=== PATIENT | male | born 1965 | race Caucasian/White ===

== ENCOUNTER 2021-11-17 10:42 | Emergency (ER) | payer MEDICAID ==
[~2021-11-17] VITALS: Ht 175.3 cm; Wt 93.0 kg
[2021-11-17 11:35] VITALS: BP_SYST 160
--- NOTE | 2021-11-17 11:47 | NUR ---
Patient to ER bed 03 to gown for evaluation. Side rails up.
--- NOTE | 2021-11-17 11:56 | NUR ---
Kishan houser in [facility] - 11/17/21 at 1156 by [email or web address] Placed in room 03 . Placed on quality assurance monitor final, blood pressure machine and pulse oximeter. To gown for exam. Side rails up.
--- NOTE | 2021-11-17 12:00 | NUR ---
ESTABLISHED IV 20 GAUZE SALINE LOCKED AT LEFT ANTECUBITAL. URINE SPECIMEN AND BLOOD WORK DONE AND SENT TO LABS. PATIENT'S VITAL SIGNS REMAIN STABLE. RIGHT ABDOMINAL UPPER AND LOWER QUADRANT PAIN HAS RECEDED A PAIN LEVEL OF 2 OUT OF 10.
[2021-11-17] MEDS ORDERED: KETOROLAC TROMETHAMINE 15 MG VIAL IVP ONE (12:15)
--- NOTE | 2021-11-17 12:27 | NUR ---
DR MANCERA AT BEDSIDE TO EVALUATE.
[2021-11-17 12:29] LABS: BILIRUBIN,URINE NEGATIVE (NEGATIVE); CLARITY/URINE CLEAR (CLEAR); COLOR,URINE YELLOW (YELLOW); GLUCOSE,URINE NEGATIVE (NEGATIVE); KETONES,URINE NEGATIVE (NEGATIVE); LEUKOCYTE ESTERASE ,URINE 1+ (NEGATIVE); NITRITE, URINE NEGATIVE (NEGATIVE); PROTEIN URINE NEGATIVE (NEGATIVE)
[2021-11-17 12:34] LABS: BLOOD, URINE TRACE (NEGATIVE)
[2021-11-17 12:35] LABS: BASOPHILS # (AUTO) 0.1 K/uL (0.0-0.2); BASOPHILS % (AUTO) 0.4 % (0.0-2.0); EOSINOPHILS % (AUTO) 0.2 % (0.0-4.0); HEMATOCRIT 42.2 % (36-54); HEMOGLOBIN 14.4 g/dL (14.0-18.0); LYMPHOCYTES # (AUTO) 0.8 K/uL (1.0-5.5); LYMPHOCYTES % (AUTO) 4.3 % (20.5-51.5); MEAN CORPUSCULAR HEMOGLOBIN 31 pg (27-31); MEAN CORPUSCULAR HGB CONC 34 % (32-36); MEAN CORPUSCULAR VOLUME 91 fL (79.0-98.0); MONOCYTES # (AUTO) 0.8 K/uL (0.0-1.0); MONOCYTES % (AUTO) 4.9 % (1.7-9.3); NEUTROPHILS # (AUTO) 15.7 K/uL (1.8-7.7); NEUTROPHILS % (AUTO) 90.2 % (40.0-70.0); PLATELET COUNT (AUTO) 162 K/uL (130-430); RED BLOOD CELL COUNT(AUTO) 4.65 MIL/uL (4.2-6.2); RED CELL DISTRIBUTION WIDTH 13.2 % (9.0-15.0); WHITE BLOOD COUNT (AUTO) 17.4 K/uL (4.8-10.8)
[2021-11-17 12:46] LABS: CALCIUM 8.6 mg/dL (8.4-11.0); CREATININE 0.96 mg/dL (0.55-1.30); POTASSIUM 3.3 mmol/L (3.5-5.1)
[2021-11-17 12:47] LABS: BACTERIA,URINE None Seen /HPF (None Seen)
[2021-11-17 12:51] LABS: ALBUMIN 3.8 g/dL (3.4-4.8); TOTAL BILIRUBIN 1.9 mg/dL (0.0-1.0)
[2021-11-17] MEDS ORDERED: cefTRIAXone 2 GM VIAL ONE (13:23)
[2021-11-17] MEDS ORDERED: POTASSIUM CHLORIDE 20 MEQ TAB.PRT.SR PO ONE (13:30)
[2021-11-17] MEDS ORDERED: NACL 0.9% 1,000 ML IV ONE (14:30)
[2021-11-17] MEDS ORDERED: SULF1TAB48 PO (15:17)
[2021-11-17] MEDS ORDERED: IBUP-1969 PO (15:17)
[2021-11-17] MEDS ORDERED: ANT30 PO (15:19)
--- NOTE | 2021-11-17 16:15 | NUR ---
Discharge instruction provided.IV access removed. Patient accompanied by for home with stable vital signs. Denies any pain or discomfort.
[2021-11-17 19:28] VITALS: BP_SYST 134
== END 2021-11-17 16:15 | disposition home or self-care (01) ==
LOC: SED 10:42
DX: N39.0 Urinary tract infection, site not specified (principal); N40.1 Benign prostatic hyperplasia with lower urinary tract symptoms
CPT/HCPCS: 36415; 74177; 76376; 80053; 81000; 83605; 83690; 85025; 87086; 96365; 96375; 99285; J0696; J1885; Q9967; 96374; 99284